=== PATIENT | female | born 2000 | race Caucasian/White ===

== ENCOUNTER 2022-01-27 23:49 | Emergency (ER) | payer BC, SELFPAY ==
--- OUTSIDE RECORDS SUMMARY | 2022-01-27 23:52 | XMS REPORT | Continuity of Care Document ---
:2000 Author Organization [facility] t Address [address] [place] [address] Care Team Providers Name Role Phone PCP, DOES NOT HAVE A Primary Care Physician Unavailable ADUM, L Attending Clinician Unavailable YOLANDA, ZAY Attending Clinician Unavailable Zay Guerrero MD Attending Clinician Tariq DARBY Attending Clinician Pob, Lab Main Attending Clinician Unavailable Only, Test Attending Clinician Unavailable Room, Nst Attending Clinician Unavailable Doctor Unassigned, Name Attending Clinician Unavailable ZAY GUERRERO Admitting Clinician Unavailable Zay Guerrero MD Admitting Clinician Payers Payer Name Policy Type Policy Number Effective Date Expiration Date Jovany COTO [id number] 2016 HEALTH 00:00:00 Problems Condition Condition Condition Status Onset Resolution Last Treating Co mments Source Name Details Category Date Date Treatment Clinician Date High risk High risk Disease Active 2020-07 Uni vers , , 2-23 [place] [address] [place] [address] Branch Liveborn Liveborn Disease Active 2019-07 Unive rs infant, of infant, of 2-03 it y of lópez lópez 00:00: [place] , , 00 Me dical born in born in [facility] by vaginal by vaginal delivery delivery 40 weeks 40 weeks Disease Active 2019-07 Unive rs gestation gestation 2-02 ity of of of 00:00: [place] 00 [facility] Anemia of Anemia of Disease Active 2019-07 Uni vers mother in mother in 08-06 [place]y of , , [place] antepartum antepartum 00 Me dical [place] Uterine Uterine Disease Active 2019-07 Univers size-date size-date 07-30 [place]y of discrepanc discrepanc [place] y in third y in third 00 Me dical trimester trimester Bran ch Allergies, Adverse Reactions, Alerts Allergy Allergy Status Severity Reaction(s) Onset Inactive Treating Comm ents Source Name Type Date Date Clinician NO KNOWN Drug Active Univers ALLERGIE Class ity of S [facility] Social History Social Habit Start Date Stop Date Quantity Comments Source ASSERTION 2021-02-19 [facility] 00:00:00 [facility] Alcohol intake 2021-11-14 2021-11-14 Ex-drinker [facility] 00:00:00 00:00:00 (finding) [facility] Exposure to 2021-11-03 2021-11-13 Not sure [facility] SARS-CoV-2 00:00:00 10:16:00 [facility] (event) [place] Tobacco use and 2020-03-16 2020-03-16 Never used Universit y of exposure 00:00:00 00:00:00 [facility] Sex Assigned At 2000 2000 Universit y of 00:00:00 00:00:00 [facility] Smoking Status Start Date Stop Date Source Never smoker [facility] Medications Ordered Filled Start Stop Current Ordering Indication Dosage Frequency Signature Comments Components Source Medication Medication Date Date Medication? Clinician (SIG) Name Name Yes 1{tbl} 1 tablet, Un cary vitamin 5-11 Oral, ity of w/FA tablet 14:00: [place]ILY[place] 1 tablet 00 First dose Medic al on Sat [place] 11/15/21 at 0900, Until Discontinu ed, Routine Yes [id number] 1{tbl} Take 1 Univers vitamin 5-11 tablet by ity of w/FA tablet 00:00: mouth 00 daily. [facility] Branch docusate Yes [id number] 200mg Take 2 U nivers 100 mg 5-11 capsules ity of capsule 00:00: by mouth 00 once daily Medical as needed Branch for Constipati on. ferrous Yes [id number] 325mg Take 1 Un cary sulfate 325 5-11 tablet by ity of mg (65 mg 00:00: mouth 2 [place] iron) 00 (two) Medical tablet times Branch daily. ibuprofen 2021-0 Yes [id number] 600mg Take 1 Univers 600 mg 5-11 tablet by ity of tablet 00:00: mouth [place] 00 every 6 Medical (six) Branch hours as needed (Pain). Take with food or milk. HYDROcodone 2021-0 Yes 1{tbl} 1 tablet, Univers -acetaminop 5-10 Oral, ity of hen (NORCO 16:13: Q6HPRN, [place] 5) 5-325 mg 03 Starting Medi luna tablet 1 on tablet 11/14/21 at 1113, Until Discontinu ed, Routine, Pain (scale 7-10) ibuprofen 2021- Yes 600mg 600 mg, Univ ers (IBU) 5-10 Oral, ity of tablet 600 16:13: Q6HPRN, [place] mg 03 Starting Medical on Branch 11/14/21 at 1113, Until Discontinu ed, Routine, Pain (scale 4-6) acetaminoph 2021-0 Yes 650mg 650 mg, Un cary en 5-10 Oral, ity of (TYLENOL) 16:13: Q6HPRN, [place] tablet 650 03 Starting Medic al mg on 11/14/21 at 1113, Until Discontinu ed, Routine, Pain (scale 1-3) diphenhydrA 2021-0 Yes 25mg 25 mg, Univ ers MINE 5-10 Oral, ity of (BENADRYL) 16:13: Q6HPRN, [place] tablet 25 03 Starting Medica l mg on Branch 11/14/21 at 1113, Until Discontinu ed, Routine, Sleep, Itching ondansetron 2021-0 Yes 4mg 4 mg, Slow Univers (ZOFRAN 5-10 IV Push, ity of (PF)) 16:13: Q8HPRN, [place] injection 4 03 Starting Medi luna mg on Branch 11/14/21 at 1113, Until Discontinu ed, Routine, Nausea and Vomiting (N/V) simethicone 2021-0 Yes 160mg 160 mg, Un cary (GAS RELIEF 5-10 Oral, ity of (SIMETHICON 16:13: PC+HSPRN, [place] E)) 03 Starting Medical chewable on Sat tablet 160 11/14/21 at mg 1113, Until Discontinu ed, Routine, Gas docusate Yes 200mg 200 mg, Unive rs (COLACE) 5-10 Oral, ity of capsule 200 16:13: QDAILYPRN, [place] mg 03 Starting Medical on Sat Branch 11/14/21 at 1113, Until Discontinu ed, Routine, Constipati on magnesium Yes 30mL 30 mL, Univer s hydroxide 5-10 Oral, ity of (MILK OF 16:13: QDAILYPRN, [place] MAGNESIA) 03 Starting Medica l 400 mg/5 mL on Sat suspension 11/14/21 at 30 mL 1113, Until Discontinu ed, Routine, Constipati on oxytocin Yes 600mL/h 600 mL/hr, Univers (PITOCIN) 5-10 IV ity of 30 units in 16:13: Infusion, [place] NS 500 mL 03 PRN, For Medica l IV infusion post Branch delivery uterine atony., Starting on Sat11/14/21 at 1113<br&gt ;Start at 600 mL/hr for 1 hr then 150 mL/hr for 1 hr.
benzocaine- Yes Topical, Un cary menthol 5-10 PRN, ity of (DERMOPLAST 16:13: Starting [place] ) 20-0.5 % 03 on Sat Medical topical 11/14/21 at Branch spray 1113, Until Discontinu ed, Routine, Perineum discomfort lidocaine-e 2021- No Intravenou Univers pinephrine 5- 05-10 s, ONCE ity o f (XYLOCAINE 13:19: 16:34 INTRA [place] W/EPINEPHRI 00 :03 PROCEDURE, Me dical NE) 2 Starting Branch %-1:200,000 on Sat injection 11/14/21 at 0819, Until Sat11/14/21 at 1134, Routine, Intra-op benzocaine- 2021- No Topical, U nivers menthol 5-10 05-10 PRN, ity of (DERMOPLAST 13:11: 16:51 Starting [place] ) 20-0.5 % 57 :35 on Sat Medical topical 11/14/21 at Branch spray 0811, Until 11/14/21 at 1151, Routine, Localized pain witch Arnold 0 Yes Topical, Un cary (TUCKS) 50 5-10 PRN, ity of % topical 13:00: [place] pad 00 on Sat Medical 11/14/21 at Branch 0800, Until Discontinu ed, Routine, after delivery fentaNYL-ro 2021- No Epidural, Univers pivacaine 2 - 05-10 CONTINUOUS i ty of mcg/mL-0.1 12:41: 16:34 PRN, [place] % (PF) in 00 :03 Starting Medica l NS 200 mL on Sat Branch epidural 11/14/21 at infusion 0741, RTU Until Sat11/14/21 at 1134, Routine, Intra-op lidocaine-e 2021- No Intraderma Univers pinephrine - 05-10 l, ONCE ity o f (XYLOCAINE 12:31: 16:34 INTRA [place] W/EPINEPHRI 00 :03 PROCEDURE, Al dical NE) 1.5 Starting Branch %-1:200,000 on Tue injection 11/14/21 at 0731, Until e 11/14/21 at 1134, Routine, Intra-op D5W-LR IV 2021- No 1000mL at 125 Uni vers infusion 5-10 05-10 mL/hr, IV ity o f 1,000 mL 05:30: 16:51 Infusion, [place] 00 :35 CONTINUOUS Medical , Starting Branch on Sat11/14/21 at 0030, Until Sat11/14/21 at 1151, Routine lactated 2021- No 500mL at 999 Unive rs ringers IV 5-10 05-10 mL/hr, 500 it y of infusion 05:30: 11:41 mL, IV [place] 500 mL 00 :00 Infusion, Medical ONCE, 1 Branch dose, On Sat11/14/21 at 0030, Routine oxytocin Yes 1mU/min at 1-40 Uni vers (PITOCIN) 5-10 mL/hr, IV ity o f 30 units in 05:15: Infusion, [place] NS 500 mL 47 TITRATE, Medica l IV infusion Starting Bran ch on Sat11/14/21 at 0015, Until Discontinu ed, SALIMA sodium 2021- No 30mL 30 mL, Univers citrate-cit 11-14 Oral, ity of january acid 05:15: 11:53 PRE-PROCED [place] (BICITRA) 47 :00 URE ONCE, Medic al 500-334 1 dose, Branch mg/5 mL Starting solution 30 on Sat mL 11/14/21 at 0015, Until Sat11/14/21 at 0653, Routine, Surgery/Pr ocedure fluconazole Yes [id number] 200mg Take 1 Univers (DIFLUCAN) 4-17 tablet by ity of 200 mg 00:00: mouth [place] tablet 00 daily. Medical Branch fluconazole Yes [id number] 200mg Take 1 Univers (DIFLUCAN) 4-17 tablet by ity of 200 mg 00:00: mouth [place] tablet 00 daily. Medical Branch fluconazole 2021- No [id number] 200mg Take 1 Univers (DIFLUCAN) 4-17 05-09 tablet by ity of 200 mg 00:00: 00:00 mouth [place] tablet 00 :00 daily. Medical Branch ferrous Yes [id number] 325mg Take 1 Un cary sulfate 1-20 tablet by ity of (IRON, 00:00: mouth 2 [place] FERROUS 00 (two) Medical SULFATE,) times Branch 325 mg (65 daily. mg iron) tablet ferrous Yes [id number] 325mg Take 1 Un cary sulfate 1-20 tablet by ity of (IRON, 00:00: mouth 2 [place] FERROUS 00 (two) Medical SULFATE,) times Branch 325 mg (65 daily. mg iron) tablet ferrous Yes [id number] 325mg Take 1 Un cary sulfate 1-20 tablet by ity of (IRON, 00:00: mouth 2 [place] FERROUS 00 (two) Medical SULFATE,) times Branch 325 mg (65 daily. mg iron) tablet ferrous Yes [id number] 325mg Take 1 Un cary sulfate 1-20 tablet by ity of (IRON, 00:00: mouth 2 [place] FERROUS 00 (two) Medical SULFATE,) times Branch 325 mg (65 daily. mg iron) tablet ferrous Yes [id number] 325mg Take 1 Un cary sulfate 1-20 tablet by ity of (IRON, 00:00: mouth 2 [place] FERROUS 00 (two) Medical SULFATE,) times Branch 325 mg (65 daily. mg iron) tablet ferrous Yes [id number] 325mg Take 1 Un cary sulfate 1-20 tablet by ity of (IRON, 00:00: mouth 2 [place] FERROUS 00 (two) Medical SULFATE,) times Branch 325 mg (65 daily. mg iron) tablet ferrous Yes [id number] 325mg Take 1 Un cary sulfate 1-20 tablet by ity of (IRON, 00:00: mouth 2 [place] FERROUS 00 (two) Medical SULFATE,) times Branch 325 mg (65 daily. mg iron) tablet ferrous 2021- No [id number] 325mg Take 1 U nivers sulfate 1-20 05-11 tablet by ity of (IRON, 00:00: 00:00 mouth 2 [place] FERROUS 00 :00 (two) Medical SULFATE,) times Branch 325 mg (65 daily. mg iron) tablet PNV 2020-07 Yes [id number] Take 1 Univers 102-iron-fo 2-23 TAB-CAP/M2 it y of late-dha 00:00: by mouth [place] (VITAFOL FE 00 daily. Medica l PLUS) 90 mg Branch iron- 1 mg-200 mg Cap PNV 2020-07 Yes [id number] Take 1 Univers 102-iron-fo 2-23 TAB-CAP/M2 it y of late-dha 00:00: by mouth [place] (VITAFOL FE 00 daily. Medica l PLUS) 90 mg Branch iron- 1 mg-200 mg Cap PNV 2020-07 Yes [id number] Take 1 Univers 102-iron-fo 2-23 TAB-CAP/M2 it y of late-dha 00:00: by mouth [place] (VITAFOL FE 00 daily. Medica l PLUS) 90 mg Branch iron- 1 mg-200 mg Cap PNV 2020-07 Yes [id number] Take 1 Univers 102-iron-fo 2-23 TAB-CAP/M2 it y of late-dha 00:00: by mouth [place] (VITAFOL FE 00 daily. Medica l PLUS) 90 mg Branch iron- 1 mg-200 mg Cap PNV 2020-07 Yes [id number] Take 1 Univers 102-iron-fo 2-23 TAB-CAP/M2 it y of late-[facility] 00:00: by mouth [place] (VITAFOL FE 00 daily. Medica l PLUS) 90 mg Branch iron- 1 mg-200 mg Cap PNV 2020-07 Yes [id number] Take 1 Univers 102-iron-fo 2-23 TAB-CAP/M2 it y of late-[facility] 00:00: by mouth [place] (VITAFOL FE 00 daily. Medica l PLUS) 90 mg Branch iron- 1 mg-200 mg Cap PNV 2020-07 Yes [id number] Take 1 Univers 102-iron-fo 2-23 TAB-CAP/M2 it [facility] 00:00: by mouth [place] (VITAFOL FE 00 daily. Medica l PLUS) 90 mg Branch iron- 1 mg-200 mg Cap PNV 2020-07- No [id number] Take 1 Univer s 102-iron-fo 2-23 05-11 TAB-CAP/M2 i ty of formerly [facility] 00:00: 00:00 by mouth Armida godinez (VITAFOL FE 00 :00 daily. Medica l PLUS) 90 mg Branch iron- 1 mg-200 mg Cap Immunizations Ordered Filled Immunization Date Status Comments [facility] e Immunization Name Name [facility] 2021-09-13 Completed University of 00:00:00 [facility] 2021-09-13 Completed University of 00:00:00 [facility] 2021-09-13 Completed University of 00:00:00 [facility] 2021-09-13 Completed University of 00:00:00 [facility] 2021-09-13 Completed [facility] Com[facility] University of 00:00:00 [facility] Influenza Virus 2021 Completed Universit y of Vaccine Quad IM, 00:00:00 [place] Me dical Preserv and ABX Branch Free 6 MO-64 YRS Influenza Virus 2021 Completed Universit y of Vaccine [place] IM, 00:00:00 [place] Me dical Preserv and ABX Branch Free 6 MO-64 YRS Influenza Virus 2021 Completed Universit y of Vaccine Quad IM, 00:00:00 [place] Me dical Preserv and ABX Branch Free 6 MO-64 YRS Influenza Virus 2021 Completed Universit y of Vaccine Quad IM, 00:00:00 [place] Me dical Preserv and ABX Branch Free 6 MO-64 YRS Influenza Virus 2021 Completed Universit y of Vaccine Quad IM, 00:00:00 [place] Me dical Preserv and ABX Branch Free 6 MO-64 YRS Influenza Virus 2021 Completed Universit y of Vaccine Quad IM, 00:00:00 [place] Me dical Preserv and ABX Branch Free 6 MO-64 YRS Influenza Virus 2021 Completed Universit y of Vaccine Quad IM, 00:00:00 [place] Me dical Preserv and ABX Branch Free 6 MO-64 YRS Influenza Virus 2021 Completed Universit y of Vaccine Quad IM, 00:00:00 [place] Me dical Preserv and ABX Branch Free 6 MO-64 YRS TDAP 2020-04-20 Completed University of 00:00:00 [facility] Influenza Virus 2020-04-20 Completed Universit y of Vaccine [place] .5 mL 00:00:00 [place] Medical IM 6+ MO Branch TDAP 2020-04-20 Completed University of 00:00:00 [place] [facility] [place] Influenza Virus 2020-04-20 Completed Universit y of Vaccine [place] .5 mL 00:00:00 [place] Medical IM 6+ MO Branch TDAP 2020-04-20 Completed University of 00:00:00 [facility] Influenza Virus 2020-04-20 Completed Universit y of Vaccine [place] .5 mL 00:00:00 [place] Medical IM 6+ MO Branch TDAP 2020-04-20 Completed University of 00:00:00 [facility] Influenza Virus 2020-04-20 Completed Universit y of Vaccine [place] .5 mL 00:00:00 [place] Medical IM 6+ MO Branch TDAP 2020-04-20 Completed University of 00:00:00 [facility] Influenza Virus 2020-04-20 Completed Universit y of Vaccine [place] .5 mL 00:00:00 [place] Medical IM 6+ MO Branch TDAP 2020-04-20 Completed University of 00:00:00 [facility] Influenza Virus 2020-04-20 Completed Universit y of Vaccine [place] .5 mL 00:00:00 [place] Medical IM 6+ MO Branch TDAP 2020-04-20 Completed University of 00:00:00 [facility] Influenza Virus 2020-04-20 Completed Universit y of Vaccine [place] .5 mL 00:00:00 [facility] IM 6+ MO Branch TDAP 2020-04-20 Completed University of 00:00:00 [facility] Influenza Virus 2020-04-20 Completed Universit y of Vaccine [place] .5 mL 00:00:00 [facility] IM 6+ MO Branch Vital Signs Vital Name Observation Time Observation Value Comments Source Systolic blood 2021-11-15 12:30:00 109 mm[Hg] Univer sity of pressure [facility] Diastolic blood 2021-11-15 12:30:00 60 mm[Hg] Unive rsity of [facility] Heart rate 2021-11-15 12:30:00 60 /min [facility] Body temperature 2021-11-15 12:30:00 36.67 [facility]ovanna [facility] Respiratory rate 2021-11-15 12:30:00 16 /min [facility] Oxygen saturation in 2021-11-15 12:30:00 100 /min [facility] Arterial blood by [facility] Pulse oximetry [place] Body height 2021-11-14 05:29:00 160 cm 5" 3" [facility] Body weight 2021-11-14 05:29:00 56.7 kg 125lb [facility] BMI 2021-11-14 05:29:00 22.14 kg/m2 [facility] Systolic blood 2021-11-13 15:37:00 111 mm[Hg] Univer sity of [facility] Diastolic blood 2021-11-13 15:37:00 74 mm[Hg] Unive rsity of [facility] Heart rate 2021-11-13 15:37:00 108 /min Universi ty [facility] Body temperature 2021-11-13 15:37:00 36.56 Jovanna [facility] ersity [facility] Respiratory rate 2021-11-13 15:37:00 8 /min [facility] Body height 2021-11-13 15:37:00 160 cm Universi [facility] Body weight 2021-11-13 15:37:00 56.972 kg [facility] ty [facility] BMI 2021-11-13 15:37:00 22.25 kg/m2 Universi ty of [facility] Systolic blood 2021-11-09 15:39:00 110 mm[Hg] Univer sity of pressure [facility] Diastolic blood 2021-11-09 15:39:00 76 mm[Hg] Unive rsity of [facility] Heart rate 2021-11-09 15:39:00 71 /min Universi ty [facility] Body temperature 2021-11-09 15:39:00 36.56 Jovanna Univ ersity of [facility] Body height 2021-11-09 15:39:00 160 cm Universi ty of [facility] Body weight 2021-11-09 15:39:00 54.522 kg Universi ty [facility] BMI 2021-11-09 15:39:00 21.29 kg/m2 Universi ty [facility] Systolic blood 2021-11-02 13:15:00 108 mm[Hg] Univer sity of [facility] Diastolic blood 2021-11-02 13:15:00 76 mm[Hg] Unive rsity of [facility] Heart rate 2021-11-02 13:15:00 104 /min Universi ty [facility] Body temperature 2021-11-02 13:15:00 36.89 Jovanna [facility] Respiratory rate 2021-11-02 13:15:00 18 /min [facility] Body height 2021-11-02 13:15:00 160 cm Universi ty [facility] Body weight 2021-11-02 13:15:00 56.246 kg Universi ty [facility] BMI 2021-11-02 13:15:00 21.97 kg/m2 [facility] Procedures Procedure Date / Time Performed Performing Clinician Sourc e CBC WITH DIFF 2021-11-15 09:14:00 Katt Guerrero Nekoma o f [facility] CENTRAL NEURAXIAL 2021-11-14 12:45:52 [facility]q [facility] ASSIGNMENT OF BENEFITS 2021-11-13 16:32:50 Doctor Unassigned, No [facility] NON-STRESS TEST 2021-11-13 16:14:58 [facility] W/O 2021-11-09 00:00:00 Katt Guerrero [facility] POCT URINALYSIS W/O 2021-11-02 00:00:00 Katt Guerrero [facility] Encounters Start End Encounter Admission Attending Care Care Encounter Source Date/Time Date/Time Type Type Clinicians Facility Department ID 2021-12-15 2021-12-15 Outpatient R MOR [facility] [id number] Univers 15:45:00 15:45:00 [place] [id number] [facility] 2021-12-15 2021-12-15 Outpatient R MOR [facility] [id number] Univers 15:45:00 15:45:00 CITLALLI [facility] 2021-12-13 2021-12-13 Outpatient R KATT GUERRERO [facility] [id number] Univers 11:00:00 11:00:00 [id number] ity [facility] 2021-12-11 2021-12-11 Outpatient R KATT GUERRERO [facility] [id number] Univers 08:45:00 08:45:00 [id number] [facility] 2021-12-11 2021-12-11 Outpatient R KATT GUERRERO [facility] [id number] Univers 08:45:00 08:45:00 ity [facility] 2021-11-14 2021-11-15 Inpatient P KATT GUERRERO [facility] MICHELINE [id number] Univers 00:01:00 11:05:00 ity [facility] 2021-11-14 2021-11-15 [facility] Katt Guerrero [facility] [id number] Univers 00:01:00 11:05:00 Encounter Zya [place] [id number] [facility] 4.2.7.2.686 [facility] [id number] [place] [id number] Branch 2021-11-14 2021-11-14 Anesthesia [facility] [id number] Univers 07:15:00 11:34:00 Event NOAM rahman [id number] i ty of [facility] 4.2.7.2.686 [place] CAMPUS [id number] [facility] 083 [place] 2021-11-13 2021-11-13 Guest Services Assistant Jose C, [facility] Lab Main [place] 1.2.8 [id number] Univers 11:45:00 12:00:00 Visit Katt Guerrero [id number] ity of [place] 4.2.7.2.686 [place] PROF[place] [id number] Al dical NAL 353 [facility] 2021-11-13 2021-11-13 Outpatient R [facility] [id number] Univers 11:45:00 11:45:00 [id number] ity of [facility] 2021-11-13 2021-11-13 Laboratory Only, [facility] Test [facility] 1.2.840. [id number] Univers 11:30:00 11:45:00 Only Katt Guerrero [id number] ity of [place] 4.2.7.2.686 [place] C[place] [id number] [facility] 353 [place] 2021-11-13 2021-11-13 Outpatient R KATT GUERRERO [facility] [id number] Univers 11:30:00 11:30:00 ity of [facility] 2021-11-13 2021-11-13 Routine Room, [facility] [id number] Univers 10:00:00 11:12:19 Katt Guerrero [id number] ity of Visit [place] 4[place]2.[place] [id number] Al dical NAL 134 [facility] 2021-11-13 2021-11-13 Orders Doctor LAUREN [id number] Univers 00:00:00 00:00:00 Only Unassigned, ANGELA [id number] ity of [place] [facility] 4.2.7.2.686 [place] [id number] [facility] 009 [place] 2021-11-09 2021-11-09 Outpatient R KATT GUERRERO [facility] [id number] Univers 10:30:00 10:58:24 ity [facility] 2021-11-09 2021-11-09 Routine Katt Guerrero [facility] [id number] Univers 10:30:00 10:58:24 Cam [place] [id number] ity of Visit [place]2.[place] [id number] [address] 2021-11-09 2021-11-09 Outpatient R KATT GUERRERO [facility] [id number] Univers 10:30:00 10:30:00 [id number] ity [facility] 2021-11-02 2021-11-02 Routine Katt Guerrero [facility] [id number] Univers 08:00:00 08:15:00 Cam [place] [id number] ity of Visit [place] 4.2.7.2.686 [place] [id number] [address] Results Test Description Test Time Test Comments Results Result Comments Source CBC with Differential 2021-11-15 10:22:27 Test Item Value Reference Range Interpretation Comme nts WBC (test code = 6690-2) See_Comment [A utomated message] The system which ge nerated this result transmit anish reference range: 4.30 - 1 1.10 10*3/?L. The reference r carmen was not used to interpr et this result as normal/abnor mal. RBC (test code = 789-8) See_Comment [Au tomated message] The system which ge nerated this result transmit anish reference range: 3.93 - 5 .25 10*6/?L. The reference r carmen was not used to interpr et this result as normal/abnor mal. HGB (test code = 718-7) 8.8 g/dL 11.6-15.0 L HCT (test code = 4544-3) 29.0 % 35.7-45.2 L MCV (test code = 787-2) 73.8 fL 80.6-95.5 L MCH (test code = 785-6) 22.4 pg 25.9-32.8 L MCHC (test code = 786-4) 30.3 g/dL 31.6-35.1 L RDW-SD (test code = 91716-5) 45.4 fL 39.0-49.9 RDW-CV (test code = 788-0) 16.9 % 12.0-15.5 H PLT (test code = 777-3) See_Comment [Au tomated message] The system which ge nerated this result transmit anish reference range: 166 - 35 8 10*3/?L. The reference range was not used to interpret th is result as normal/abnormal . MPV (test code = 28423-5) 10.1 fL 9.5-12.9 NRBC/100 WBC (test code = See_Comment [ Automated message] The [id number]) system which ge nerated this result transmit anish reference range: 0.0 - 10 .0 /100 WBCs. The reference r carmen was not used to interpr et this result as normal/abnor mal. NRBC x10^3 (test code = <0.01 See_Comment [Au tomated message] The [id number]) system which ge nerated this result transmit anish reference range: 10*3/?L. The reference range was not u sed to interpret this result as normal/abnormal . GRAN MAT (NEUT) % (test code 66.3 % = 770-8) IMM GRAN % (test code = 0.50 % [id number]) LYMPH % (test code = 736-9) 28.0 % MONO % (test code = 5905-5) 4.7 % EOS % (test code = 713-8) 0.2 % BASO % (test code = 706-2) 0.3 % GRAN MAT x10^3(ANC) (test 5.86 10*3/uL 1.88-7.09 code = [id number]) IMM GRAN x10^3 (test code = 0.04 10*3/uL 0.00-0.06 [id number]) LYMPH x10^3 (test code = 2.48 10*3/uL 1.32-3.29 731-0) MONO x10^3 (test code = 0.42 10*3/uL 0.33-0.92 742-7) EOS x10^3 (test code = <0.03 0.03-0.39 L 711-2) BASO x10^3 (test code = 0.03 10*3/uL 0.01-0.07 704-7) Lab Interpretation (test Abnormal code = 92681-4) [facility] SPECIFIC [id number] 15:38:00 Test Item Value Reference Range Interpretation Comments POCT PH U (test code = 3254) n/a 5-8 POCT U LEUK EST (test code = n/a Negative - Negative 3263) POCT U NIT (test code = 3262) n/a Negative - Negative POCT U PROT (test code = 3259) Negative Negative - Negative POCT U GLU (test code = 3256) normal Negative - Negative POCT U KETONE (test code = 3258) n/a Negative - Negative POCT U BLD (test code = 3257) n/a Negative - Negative [facility]/O SPECIFIC [id number] 13:22:00 Test Item Value Reference Range Interpretation Comments POCT PH U (test code = 3254) n/a 5-8 POCT U LEUK EST (test code = n/a Negative - Negative 3263) POCT U NIT (test code = 3262) n/a Negative - Negative POCT U PROT (test code = 3259) negative Negative - Negative POCT U GLU (test code = 3256) negative Negative - Negative POCT U KETONE (test code = 3258) n/a Negative - Negative POCT U BLD (test code = 3257) n/a Negative - Negative [facility]
[2022-01-28 02:54] LABS: Urine Blood 3+ (Negative); Urine Glucose Negative (Negative); Urine Protein 3+ (Negative)
[2022-01-28 03:11] LABS: Urine Blood 2+ (Negative); Urine Glucose Negative (Negative); Urine Protein 3+ (Negative); Urine pH 6.5 (5.0-7.0)
[2022-01-28 03:39] LABS: Urine Bacteria Loaded /HPF (<20); Urine Mucus 1+ /HPF (None Seen); Urine WBC Clump Moderate /HPF (None Seen)
--- NOTE | 2022-01-28 03:47 | ER ---
Nurse's Notes [facility] Name: Sindi Brian Age: 21 yrs Sex: Female : 2000 Arrival Date: 01/27/2022 Time: 23:51 Bed 6 Private MD: Diagnosis: Pyelonephritis acute;Low back pain Presentation: 01/28 00:00 Chief complaint: Patient states: THIS MORNING START HAVING PAIN IN BILATERAL FLANK [facility] THAT HAS MOVED TO HER STOMACH. Coronavirus screen: Vaccine status: Patient reports being unvaccinated. At this time, the client does not indicate any symptoms associated with coronavirus-19. Ebola Screen: Patient negative for fever greater than or equal to 101.5 degrees Fahrenheit, and additional compatible Ebola Virus Disease symptoms. Initial Sepsis Screen: Does the patient meet any 2 criteria? No. Patient's initial sepsis screen is negative. Does the patient have a suspected source of infection? No. Patient's initial sepsis screen is negative. Risk Assessment: Do you want to hurt yourself or someone else? Patient reports no desire to harm self or others. Onset of symptoms was January 28, 2022. 00:00 Method Of Arrival: Ambulatory [facility] 00:00 Acuity: CHIP 3 [facility] Triage Assessment: 00:05 General: Appears in no apparent distress. Behavior is calm, cooperative, appropriate [facility] for age. Pain: Complains of pain in left mid back and right mid back. Musculoskeletal: Circulation, motion, and sensation intact. Historical: - Allergies: 00:05 NKDA; [facility] - Home Meds: 00:05 None [Active]; [facility] - PMHx: 00:05 None; [facility] - PSHx: 00:05 None; [facility] - Immunization history:: Adult Immunizations up to date. - Social history:: Smoking status: Patient denies any tobacco usage or history of. Screenin:24 Abuse screen: Denies threats or abuse. Nutritional screening: No deficits noted. kl Tuberculosis screening: No symptoms or risk factors identified. Fall Risk None identified. Assessment: 01:23 General: Appears in no apparent distress. comfortable, well groomed, well developed, kl Behavior is calm, cooperative, appropriate for age. Pain: Complains of pain in back and right mid back and left mid back. Neuro: No deficits noted. Level of Consciousness is awake, alert, obeys commands, Oriented to person, place, time, situation. Cardiovascular: No deficits noted. Respiratory: No deficits noted. GI: No deficits noted. : No deficits noted. EENT: No deficits noted. No signs and/or symptoms were reported regarding the EENT system. Derm: No deficits noted. No signs and/or symptoms reported regarding the dermatologic system. Musculoskeletal: Reports pain in back and right mid back and left mid back. Vital Signs: 00:00 BP 132 / 97; Pulse 77; Resp 20; Temp 98.4; Pulse Ox 100% on R/A; Weight 45.36 kg; bh1 Height 5 ft. 4 in. (162.56 cm); Pain 10/10; 02:00 BP 126 / 81; Pulse 77; Resp 18 S; Pulse Ox 99% on R/A; as6 04:06 BP 130 / 85; Pulse 79; Resp 18 S; Pulse Ox 100% on R/A; as6 00:00 Body Mass Index 17.16 (45.36 kg, 162.56 cm) [facility] ED Course: 01/27 23:51 Patient arrived in ED. bp1 23:54 Frankie Justice DO is Attending Physician. ms3 07 00:05 Triage completed. bh1 00:05 Arm band placed on right wrist. bh1 00:28 Hector Collins, [place] is Primary Nurse. as6 03:46 Juan Ramirez DO is Referral Physician. ms3 04:07 Bed in low position. Call light in reach. as6 04:07 No provider procedures requiring assistance completed. Patient did not have IV access as6 during this emergency room visit. Administered Medications: 03:54 CANCELLED (Physician Discretion): Rocephin (cefTRIAXone) 1 grams IV at calculated rate ms3 once; Given slow IV push per pharmacy instructions 04:06 Drug: Rocephin (cefTRIAXone) 1 grams Route: IM; Site: right vastus lateralis; as6 04:08 Follow up: Response: No adverse reaction as6 Medication: 04:08 VIS not applicable for this client. as6 Outcome: 03:47 Discharge ordered by . ms3 04:07 Discharged to home ambulatory. as6 04:07 Condition: stable 04:07 Discharge instructions given to patient, Instructed on discharge instructions, follow up and referral plans. medication usage, Demonstrated understanding of instructions, follow-up care, medications, Prescriptions given X 1. 04:08 Patient left the ED. as6 Signatures: Aydee Restrepo, RN RN Frankie Vicente DO DO ms3 Jazz Arceo Ashby, RN RN as6 Emilie Grady RN RN bh1
--- NOTE | 2022-01-28 03:47 | EDPHYS ---
Physician Documentation [facility] Name: Sindi Brian Age: 21 yrs Sex: Female : 2000 Arrival Date: 01/27/2022 Time: 23:51 Bed 6 Private MD: ED Physician Frankie Justice HPI: 01/28 00:35 This 21 yrs old Female presents to ER via Ambulatory with complaints of Back Pain. ms3 00:35 21-year-old female with no past medical history presents for bilateral flank pain for 1 ms3 day. Patient states pain is 10/10 described as throbbing. Patient denies alleviating or inciting factors. Patient states she has not taken medications for her pain. Patient endorses urinary frequency and dysuria. Patient denies fevers or chills.. Historical: - Allergies: 00:05 NKDA; bh1 - Home Meds: 00:05 None [Active]; bh1 - PMHx: 00:05 None; bh1 - PSHx: 00:05 None; bh1 - Immunization history:: Adult Immunizations up to date. - Social history:: Smoking status: Patient denies any tobacco usage or history of. ROS: 00:35 Constitutional: Negative for fever, and chills. ENT: Negative for injury, pain, and ms3 discharge, Neck: Negative for injury, pain, and swelling, Cardiovascular: Negative for chest pain, and palpitations. Respiratory: Negative for shortness of breath, cough, wheezing, and pleuritic chest pain, Abdomen/GI: Negative for abdominal pain, nausea, vomiting, diarrhea, and constipation. 00:35 Skin: Negative for injury, rash, and discoloration, Psych: Negative for depression, anxiety, suicide ideation, homicidal ideation, and hallucinations. 00:35 Back: Positive for flank pain, bilaterally. 00:35 All other systems are negative. Exam: 00:35 Constitutional: This is a well developed, well nourished patient who is awake, alert, ms3 and in no acute distress. Head/Face: Normocephalic, atraumatic. Eyes: Pupils equal round and reactive to light, extra-ocular motions intact. Lids and lashes normal. Conjunctiva and sclera are non-icteric and not injected. Periorbital areas with no swelling, redness, or edema. Neck: Trachea midline, no cervical lymphadenopathy. Supple, full range of motion without nuchal rigidity, or vertebral point tenderness. No Meningismus. Chest/axilla: Normal chest wall appearance and motion. Nontender with no deformity. Cardiovascular: Regular rate and rhythm with a normal S1 and S2. No gallops, murmurs, or rubs. Normal PMI, no JVD. No pulse deficits. Respiratory: Lungs have equal breath sounds bilaterally, clear to auscultation and percussion. No rales, rhonchi or wheezes noted. No increased work of breathing, no retractions or nasal flaring. Abdomen/GI: Soft, non-tender, with normal bowel sounds. No distension or tympany. No guarding or rebound. No evidence of tenderness throughout. Neuro: Awake and alert, GCS 15, oriented to person, place, time, and situation. Cranial nerves II-XII grossly intact. Motor strength 5/5 in all extremities. Sensory grossly intact. Cerebellar exam normal. Normal gait. 00:35 : CVA tenderness, noted bilaterally. Vital Signs: 00:00 BP 132 / 97; Pulse 77; Resp 20; Temp 98.4; Pulse Ox 100% on R/A; Weight 45.36 kg; 1 Height 5 ft. 4 in. (162.56 cm); Pain 10/10; 02:00 BP 126 / 81; Pulse 77; Resp 18 S; Pulse Ox 99% on R/A; as6 04:06 BP 130 / 85; Pulse 79; Resp 18 S; Pulse Ox 100% on R/A; as6 00:00 Body Mass Index 17.16 (45.36 kg, 162.56 cm) [facility] MDM: 00:22 Patient medically screened. ms3 00:35 Differential diagnosis: Pyelonephritis muscle spasm. ms3 03:47 Data reviewed: vital signs, nurses notes, lab test result(s), and as a result, I will ms3 discharge patient. Data interpreted: Pulse oximetry: on room air is 100 %. Interpretation: normal. Counseling: I had a detailed discussion with the patient and/or guardian regarding: the historical points, exam findings, and any diagnostic results supporting the discharge/admit diagnosis, lab results, the need for outpatient follow up, to return to the emergency department if symptoms worsen or persist or if there are any questions or concerns that arise at home. ED course: On re-evaluation patient is A/O x4, nad, non-toxic, ambulatory in ED, speaking full sentences.. 01/28 00:25 Order name: Urine Microscopic Only; Complete Time: 03:42 ms3 01/28 02:54 Order name: Urine Dipstick-Ancillary; Complete Time: 03:42 EDMS 01/28 02:54 Order name: Urine --Ancillary (enter results); Complete Time: 03:42 ds4 01/28 03:11 Order name: Urine Dipstick-Ancillary; Complete Time: 03:42 EDMS 01/28 03:42 Order name: Urine Culture EDMS 01/28 00:25 Order name: Urine Dipstick-Ancillary (obtain specimen); Complete Time: 02:54 ms3 Administered Medications: 03:54 CANCELLED (Physician Discretion): Rocephin (cefTRIAXone) 1 grams IV at calculated rate ms3 once; Given slow IV push per pharmacy instructions 04:06 Drug: Rocephin (cefTRIAXone) 1 grams Route: IM; Site: right vastus lateralis; as6 04:08 Follow up: Response: No adverse reaction as6 Disposition Summary: 01/28/22 03:47 Discharge Ordered Location: Home ms3 Condition: Stable ms3 Diagnosis - Pyelonephritis acute ms3 - Low back pain ms3 Followup: ms3 - With: Juan Ramirez DO - When: 2 - 3 days - Reason: Recheck today's complaints Discharge Instructions: - Discharge Summary Sheet ms3 - Pyelonephritis, Adult ms3 Forms: - Medication Reconciliation Form ms3 - Thank You Letter ms3 - Antibiotic Education ms3 - Prescription Opioid Use ms3 Prescriptions: - Cephalexin 500 mg Oral Capsule - take 1 capsule by ORAL route every 6 hours for 10 days; 40 capsule; Refills: 0, ms3 Product Selection Permitted Signatures: Dispatcher [employer] EDAZ Frankie Justice DO DO ms3 Hector Collins RN RN as6 Emilie Grady RN RN bh1 Corrections: (The following items were deleted from the chart) 03:54 03:50 Rocephin (cefTRIAXone) 1 grams IV at calculated rate once; Given slow IV push per ms3 pharmacy instructions ordered. ms3
[2022-01-28] MEDS ORDERED: LIDOCAINE 1% MPF 2 ML AMPULE ONE (04:06)
[2022-01-28] MEDS ORDERED: CEFTRIAXONE 1000 MG/VIAL ONE (04:06)
[2022-01-28 04:16] VITALS: TEMP 98.4
[2022-01-28 04:20] VITALS: BP 130/85; O2SAT 100
== END 2022-01-28 04:08 | disposition home or self-care (01) ==
LOC: ER 23:49
DX: N10 Acute pyelonephritis (principal)
CPT/HCPCS: 81003; 81015; 81025; 87077; 87086; 87088; 87186; 96372; 99283

== ENCOUNTER 2023-03-25 18:38 | Emergency (ER) | payer OTHER, SELFPAY ==
--- OUTSIDE RECORDS SUMMARY | 2023-03-25 18:46 | XMS REPORT | Continuity of Care Document ---
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 16:32:50 Doctor Unassigned, No [facility] NON-STRESS TEST 2021-11-13 16:14:58 Katt Guerrero [facility] POCT URINALYSIS W/O 2021-11-09 00:00:00 Katt Guerrero [facility] POCT URINALYSIS W/O 2021-11-02 00:00:00 Katt Guerrero [facility] Encounters Start End Encounter Admission Attending Care Care Encounter Source Date/Time Date/Time Type Type Clinicians Facility Department ID 2022-05-01 Outpatient [facility] [id number] [place] 11:31:47 [id number] [facility] 2022-03-29 Outpatient [facility] [id number] [place] 09:19:51 [id number] [facility] 2022-03-28 Outpatient [facility] [id number] [place] 11:56:40 [id number] [facility] 2022-03-26 Outpatient [facility] [id number] [place] 11:28:58 [id number] [facility] 2022-03-13 Outpatient [facility] [id number] [place] 10:41:02 [id number] [facility] 2021-05-06 Outpatient P [facility] MICHELINE [id number] Univers 08:38:19 [facility] 2022-05-02 2022-05-02 Outpatient [facility] [id number] [place] 13:30:00 13:30:00 Health 2022-04-19 2022-04-19 Outpatient [facility] [id number] [place] 14:15:00 14:15:00 Health 2022-04-11 2022-04-11 Outpatient EPIFANIO [facility] [id number] [place] 14:00:00 14:00:00 QUIN [facility] 2022-04-11 2022-04-11 Outpatient [facility] [id number] [place] 14:00:00 14:00:00 Health 2022-04-03 2022-04-03 Outpatient JEFFREY CID [facility] [id number] [place] 13:15:00 13:15:00 [facility] 2022-03-28 2022-03-28 Office ARLETTE Monge 6414 1.2.840.114 [id number] [place] 12:30:00 13:21:15 Visit Quin MUNROE 350.1.13.58 [facility] 9.2.7.2.686 [id number] 2022-03-28 2022-03-28 Outpatient [facility] [id number] [place] 12:30:00 13:15:58 Health 2022-03-13 2022-03-16 Inpatient [facility] [id number] Memoria 00:06:15 23:30:[address] [place] [address] 2022-03-13 2022-03-16 Inpatient E SARAH [id number] 11:12:00 18:30:00 JF 2022-03-12 2022-03-16 Outpatient Sarah [facility] [id number] 19:06:15 18:30:00 Jf Carrasco 67 2022-03-12 2022-03-16 Outpatient Sarah [facility] [id number] 19:06:15 18:30:00 Jf Carrasco 67 2022-03-12 2022-03-12 Outpatient EFRAÍN [id number] 20:05:00 23:59:00 TIAN 2021-12-15 2021-12-15 Outpatient Savi JUARES [facility] [id number] Univers 15:45:00 15:45:00 CITLALLI ity of [facility] 2021-12-11 2021-12-11 Outpatient R KATT GUERRERO [facility] [id number] Univers 08:45:00 08:45:00 ity of [facility] 2021-11-14 2021-11-15 Inpatient P KATT GUERRERO [facility] MICHELINE [id number] Univers 00:01:00 11:05:00 ity of [facility] 2021-11-14 2021-11-15 Hospital Katt Guerrero [facility] 1.2.840.114 [id number] Univers 00:01:00 11:05:00 Encounter Jagdish SANTACRUZ 350.1.13.10 ity of [place] [id number] [place] [address] [place] 2021-11-14 2021-11-14 Anesthesia Alquicira-M [facility] 1.2.840.114 [id number] Univers 07:15:00 11:34:00 Event NOAM rahman 350.1.13.10 i ty of [place] [facility] 4.2.7.2.686 [place] as CAMPUS [phone] [place] [address] Branch 2021-11-13 2021-11-13 Record Clerk Salesperson Jose C, Gianna Lab Main [place] 1.2.8 40.114 [id number] Univers 11:45:00 12:00:00 Visit Katt Guerrero NOAM 350.1.13.10 ity of [facility] [place] [id number] [facility] [address] [facility] 2021-11-13 2021-11-13 Laboratory Only, Adc Test [facility] 1.2.840. 114 [id number] Univers 11:30:00 11:45:00 Only Katt Guerrero NOAM 350.1.13.10 ity of [facility] [place].2.7.2.[place] [id number] [place] [address] [place] 2021-11-13 2021-11-13 Outpatient R KATT GUERRERO [facility] [id number] Univers 11:30:00 11:30:00 ity of [facility] 2021-11-132021-11-13 Routine Room, [facility] 1.2.840.1 14 [id number] Univers 10:00:00 11:12:19 Katt GuerreroTON 350.1.13.10 ity of [place] [id number] [address] 2021-11-13 2021-11-13 Orders Doctor LAUREN 1.2.840.114 [id number] Univers 00:00:00 00:00:00 Only Unassigned, ANGELA 350.1.13.10 ity of [place] [facility] 4.2.7.2.686 [place] as [phone] [address] 2021-11-09 2021-11-09 Outpatient R KATT GUERRERO [facility] [id number] Univers 10:30:00 10:58:24 ity [facility] 2021-11-09 2021-11-09 Routine Katt Guerrero [facility] 1.2.790.689 [id number] Univers 10:30:00 10:58:24 Cam [place] 350.1.13.10 ity of [place] [phone] Ar dic[address] 2021-11-02 2021-11-02 Routine Katt Guerrero [facility] 1.2.545.983 [id number] Univers 08:00:00 08:15:00 Cam [place] 350.1.13.10 ity of Visit [place] [id number] Ar dic[address] 2021-11-02 2021-11-02 Outpatient R KATT GUERRERO [facility] [id number] Univers 08:00:00 08:00:00 ity [facility] 2021-10-26 2021-10-26 Emergency X SINGER SCPILO ERT [id number] Univers 09:11:00 12:09:00 SETH ity [facility] 2021-10-26 2021-10-26 Emergency Singer [facility] 1.2.859.170 [id number] Univers 09:11:00 12:09:00 Seth SANTACRUZ 350.1.13.10 i ty of [facility] [place].7.[place] [id number] [address] 2021-10-26 2021-10-26 Telephone Katt Guerrero [facility] 1.2.840.114 [id number] Univers 00:00:00 00:00:00 Cam [place] 350.1.13.10 i ty of [facility] 4.[place] [phone] Ar dical NAL [address] [place] [address] 2021-10-25 2021-10-25 Outpatient R YOLANDA KATT [facility] [id number] Univers 09:45:00 09:45:00 ity [facility] 2021-10-24 2021-10-24 Record Clerk Salesperson Ultrasound, [facility] 1.2 .840.114 [id number] Univers 14:00:00 14:30:00 Visit Elvis Stout 350.1 .13.10 ity of [facility] [place].2.7.[place] [phone] Ar dical NAL [address] [place] [address] 2021-10-24 2021-10-24 Outpatient P RADHA [facility] [id number] Univers 14:00:00 14:00:00 AMMON it y of [place] Godinez [facility] 2021-10-22 2021-10-22 Case Katt Guerrero [facility] 1.2.226.281 [id number] Univers 00:00:00 00:00:00 Management Cam [place] 350.1.13.10 ity of [facility] [place] [phone] Ar dical NAL [address] [place] [address] 2021-10-19 2021-10-19 Outpatient R YOLANDA KATT [facility] [id number] Univers 16:00:00 17:04:43 ity [facility] 2021-10-19 2021-10-19 Routine Yolanda Katt [facility] 1.2.078.864 [id number] Univers 16:00:00 17:04:43 Cam NOAM 350.1.13.10 ity of [place] [phone] Ar dical NAL 134 [facility] 2021-10-19 2021-10-19 Telephone Katt Guerrero [facility] 1.2.840.114 [id number] Univers 00:00:00 00:00:00 Cam NOAM 350.1.13.10 i ty of [place] [phone] Ar dical [facility] 134 [facility] 2021-10-17 2021-10-17 Record Clerk Salesperson Jose C, Adc Lab Main [facility] 1.2.8 40.114 [id number] Univers 17:15:00 17:30:00 Visit Katt Guerrero Jagdish SANTACRUZ 350.1.13.10 ity of [facility] [place] [phone] [facility] 353 [facility] 2021-10-17 2021-10-17 Outpatient R KATT GUERRERO [facility] [id number] Univers 15:30:00 16:25:52 ity of [facility] 2021-10-17 2021-10-17 Routine Katt Guerrero [facility] 1.2.907.197 [id number] Univers 15:30:00 16:25:52 Jagdish SANTACRUZ 350.1.13.10 ity of [place] [phone] [address] 2021-10-17 2021-10-17 Orders Doctor LAUREN 1.2.840.114 [id number] Univers 00:00:00 00:00:00 Only Unassigned, ANGELA 350.1.13.10 ity of [place] [facility] 4.2.7.2.686 Timbo as [phone] [address] 2021-10-11 2021-10-11 Outpatient Savi MOYA [facility] [id number] Univers 16:15:00 16:15:00 RICARDA bowman [facility] 2021-10-10 2021-10-10 Outpatient Savi MOYA [facility] [id number] Univers 15:45:00 16:36:08 RICARDA ity [facility] 2021-10-10 2021-10-10 Routine Nita [facility] 1.2.494.660 [id number] Univers 15:45:00 16:36:08 Ricarda [place] 350.1.13.10 ity of [place] [phone] Ar dical NAL [address] [place] [address] 2021-10-06 2021-10-06 Outpatient R LY, [facility] [id number] Univers 17:20:00 17:20:00 ATTENDING ity [facility] 2021-10-06 2021-10-06 Telephone Katt Guerrero [facility] 1..840.114 [id number] Univers 00:00:00 00:00:00 Cam NOAM 350.1.13.10 i ty of [place] [phone] Ar dical NAL [address] [place] [address] 2021-09-27 2021-09-27 Outpatient R KATT GUERRERO [facility] [id number] Univers 16:00:00 16:43:05 ity [facility] 2021-09-27 2021-09-27 Routine Katt Guerrero [facility] 1.2.854.631 [id number] Univers 16:00:00 16:43:05 Jagdish [place] 350.1.13.10 ity of [place] [phone] Ar dical NAL 134 [facility] 2021-09-15 2021-09-15 Record Clerk Salesperson 2, Adc Lab [facility] 1.2.840.114 [id number] Univers 10:00:00 10:15:00 Visit Katt Guerrero 350.1.13.10 ity of [place] [phone] Ar dicdylon FARMER 353 [facility] 2021-09-15 2021-09-15 Outpatient R KATT GUERRERO [facility] [id number] Univers 10:00:00 10:00:00 ity of [facility] 2021-09-15 2021-09-15 Outpatient R KATT GUERRERO [facility] [id number] Univers 08:30:00 08:30:00 ity [facility] 2021-09-14 2021-09-14 Outpatient R [facility] [id number] Univers 08:30:00 08:30:00 ity [facility] 2021-09-13 2021-09-13 Routine Nita [facility] 1.2.277.919 [id number] Univers 16:00:00 16:15:00 Riacrdaradha SANTACRU[place] 350.1.13.10 ity of [facility] 4.2.7.2.686 Armida FONSECA [phone] [address] 2021-09-13 2021-09-13 Outpatient R NITA [facility] [id number] Univers 16:00:00 16:00:00 [facility] 2021-09-04 2021-09-04 [facility] [id number] Univers 14:15:00 14:15:00 [facility] 2021-09-01 2021-09-01 Outpatient R KATT GUERRERO [facility] [id number] Univers 10:00:00 10:00:00 ity [facility] 2021-08-25 2021-08-25 Out[facility] [id number] Univers 08:15:00 08:15:00 ity [facility] 2021-08-24 2021-08-24 Outpatient R KATT GUERRERO [facility] [id number] Univers 13:45:00 13:45:00 ity [facility] 2021-08-10 2021-08-10 Outpatient R [facility] [id number] Univers 10:30:00 10:30:00 ity [facility] 2021-08-03 2021-08-03 Record Clerk Salesperson [facility] 1.2 .840.114 [id number] Univers 11:00:00 12:00:00 Visit Allyssa Alva TRAFFIC CONTROL TECHNICIAN 350.1. 13.10 ity of [place] [id number] Timbo as MATERNAL [phone] Med ical & CHILD [address] [place] [address] 2021-08-03 2021-08-03 Outpatient P NIDA [facility] [id number] Univers 11:00:00 11:00:00 CHASEY ity of [facility] 2021-07-27 2021-07-27 Routine [facility] 1.2.212.046 [id number] Univers 15:45:00 16:42:31 Cam NOAM 350.1.13.10 ity of Visit [place] [phone] Ar dical [address] 2021-07-27 2021-07-27 Outpatient R YOLANDA KATT [facility] [id number] Univers 08:30:00 08:30:00 ity of [facility] 2021-07-06 2021-07-06 Nurse Nurse, [facility] 1.2.840.114 [id number] Univers 10:30:00 10:45:00 Visit Katt Guerrero Jagdish [facility] 350.1.13.10 ity of [place].2.[place] [phone] Ar dic[address] 2021-07-06 2021-07-06 Outpatient R DALE GUERREROEN [facility] [id number] Univers 10:30:00 10:30:00 ity of [facility] 2021-07-05 2021-07-05 Telephone Yolanda [facility] 1.2.840.114 [id number] Univers 00:00:00 00:00:00 Cam NOAM 350.1.13.10 i ty of [place] [phone] Ar dical [address] 2021-07-02 2021-07-02 Case Nita [facility] 1.2.364.092 [id number] Univers 00:00:00 00:00:00 Management [facility] 350.1.13.10 ity of [place] 4.2.7.2.686 Timbo as ZA?BLEA [phone] Ar marisa [facility] [address] [place] MEDICAL OFFICE [facility] 2021 2021 Initial Katt Guerrero [facility] 1.2.777.121 [id number] Univers 16:15:00 16:15:00 Cam [place] 350.1.13.10 ity of [place] [phone] [facility] 134 [facility] 2021 2021 Record Clerk Salesperson 2, Adc Lab [facility] 1.2.840.114 [id number] Univers 16:00:00 16:15:00 Visit Yolanda Kattalayna SANTACRUZ 350.1.13.10 ity of [place] [phone] [facility] 353 [facility] 2021 2021 Outpatient R KATT GUERRERO [facility] [id number] Univers 16:15:00 15:50:22 ity of [facility] 2021 2021 Orders Doctor LARUEN 1.2.840.114 [id number] Univers 00:00:00 00:00:00 Only Unassigned, ANGELA 350.1.13.10 ity of [place] [facility] 4.2.7.2.686 Timbo as [phone] [address] 2020-08-17 2020-08-17 Outpatient R KATT GUERRERO [facility] [id number] Univers 08:30:00 08:30:00 ity of [facility] 2020-07-21 2020-07-21 Routine Katt Guerrero [facility] 1.2.141.935 [id number] Univers 10:53:34 11:33:29 Cam [place] 350.1.13.10 ity of [place].2.[place] [phone] [facility] 134 [facility] 2020-07-21 2020-07-21 Outpatient R KATT GUERRERO [facility] [id number] Univers 11:15:00 11:15:00 ity of [facility] 2020-06-14 2020-06-14 Outpatient R KATT GUERRERO [facility] [id number] Univers 15:45:00 15:45:00 ity of [facility] 2020-06-14 2020-06-14 Telephone Katt Guerrero [facility] 1.2.840.114 [id number] Univers 00:00:00 00:00:00 Cam [place] 350.1.13.10 i ty of [place]2.7.2.[place] [phone] [address] 2020-06-08 2020-06-09 Hospital Katt Guerrero [facility] 1..840.114 [id number] Univers 04:37:00 16:00:00 Encounter Cam [place] 350.1.13.10 ity of [place] 4[place]2.7.2.[place] [phone] [address] 2020-06-08 2020-06-08 Outpatient P [facility] [id number] Univers 15:15:00 15:15:00 ity of [facility] 2020-06-06 2020-06-06 Routine Dale [facility] 1..095.856 [id number] Univers 08:19:43 09:27:27 Cam [place] 350.1.13.10 ity of [place].2.[place] [id number] [address] 2020-06-06 2020-06-06 Outpatient R KATT GUERRERO [facility] [id number] Univers 08:30:00 08:30:00 ity of [facility] 2020-06-01 2020-06-01 Telephone Dale [facility] 1..840.114 [id number] Univers 00:00:00 00:00:00 Cam [place] 350.1.13.10 i ty of [place]2.[place] [phone] [address] 2020-05-31 2020-05-31 Case Miguellorenzo [facility] 1.2.132.385 [id number] Univers 00:00:00 00:00:00 Management Ricarda [place] 350.1.13.10 ity of [place].2.[place] [phone] Ar dical nal 134 [facility] 2020-05-30 2020-05-30 Record Clerk Salesperson 2, Adc Lab [facility] 1.2.840.114 [id number] Univers 09:51:20 10:06:20 Visit Katt Guerrero Jagdish Santac[place] 350.1.13.10 ity of [place] 4[place]2.7.2.[place] [phone] Ar dical nal 353 [facility] 2020-05-30 2020-05-30 Routine Yolanda [facility] 1.2.309.016 [id number] Univers 08:26:12 09:31:48 Jagdish Santac[place] 350.1.13.10 ity of [place].2.[place] [phone] Ar dical nal 134 [facility] 2020-05-30 2020-05-30 Outpatient R GUERRERO KATT [facility] [id number] Univers 08:30:00 08:30:00 ity of [facility] 2020-05-30 2020-05-30 Orders Doctor LAUREN 1.2.840.114 [id number] Univers 00:00:00 00:00:00 Only Unassigned, ANGELA 350.1.13.10 ity of [place] [facility] 4.2.7.2.686 Timbo as [phone] [address] 2020-04-29 2020-04-29 Record Clerk Salesperson Ultrasound, [facility] 1.2 .840.114 [id number] Univers 13:58:03 15:00:16 Visit Elvis [place] 350.1 .13.10 ity of [place] [phone] Ar dical nal 134 [facility] 2020-04-29 2020-04-29 Outpatient P [facility] [id number] Univers 14:00:00 14:00:00 ity of [facility] 2020-04-25 2020-04-25 Telephone [facility] 1.2.840.114 [id number] Univers 00:00:00 00:00:00 Jagdish [place] 350.1.13.10 i ty of [place].2.[place] [phone] Ar dical [address] 2020-04-25 2020-04-25 Case Katt Guerrero [facility] 1.2.681.573 [id number] Univers 00:00:00 00:00:00 Management Cam [place] 350.1.13.10 ity of [place]2.[place] [phone] Ar dic[address] 2020-04-20 2020-04-20 Routine Dale [facility] 1.2.691.172 [id number] Univers 09:35:59 09:50:59 Cam [place] 350.1.13.10 ity of [place].7.2.[place] [phone] Ar dic[address] 2020-04-20 2020-04-20 Outpatient R YOLANDA [facility] [id number] Univers 09:30:00 09:30:00 ity of [facility] 2020-04-20 2020-04-20 Letter Doctor LAUREN 1.2.840.114 [id number] Univers 00:00:00 00:00:00 (Out) Unassigned, ANGELA 350.1.13.10 ity of [place] [facility] 4.2.7.2.686 Tim[place] as [phone] [address] 2020-03-16 2020-03-16 Initial Dale [facility] 1.2.404.122 [id number] Univers 13:51:31 14:21:31 [place] 350.1.13.10 ity of [place] 4[place]7.2.[place] [phone] Ar [address] 2020-03-16 2020-03-16 Outpatient R YOLANDA [facility] [id number] [employer] 14:00:00 14:00:00 ity [facility] 2020-03-16 2020-03-16 Orders Doctor LAUREN [id number] [employer] 00:00:00 00:00:00 Only Unassigned, ANGELA [id number] ity of [facility] 4.2.7.2.686 [place] as [phone] [facility] luna 009 Branch Results Test Description Test Time Test Comments Results Result Comments Source CHEM PANEL 2022-03-16 10:12:00 Test Item Value Reference Range Interpretation Comme nts Glucose Lvl (test code = Glucose Lvl) 77 70-99 [facility]2022-09-09 10:12:00 Test Item Value Reference Range Interpretation Comments BUN (test code = BUN) 15 7-22 [facility]2022-09-09 10:12:00 Test Item Value Reference Range Interpretation Comments Creatinine Lvl (test code = Creatinine 0.48 0.50-1.40 Lvl) [facility]2022-09-09 10:12:00 Test Item Value Reference Range Interpretation Comments Sodium Lvl (test code = Sodium Lvl) 140 135-145 [facility]2022-09-09 10:12:00 Test Item Value Reference Range Interpretation Comments Potassium Lvl (test code = Potassium 3.8 3.5-5.1 Lvl) [facility]2022-09-09 10:12:00 Test Item Value Reference Range Interpretation Comments Chloride Lvl (test code = Chloride Lvl) 106 95-109 [facility]2022-09-09 10:12:00 Test Item Value Reference Range Interpretation Comments CO2 (test code = CO2) 28 24-32 [facility]2022-09-09 10:12:00 Test Item Value Reference Range Interpretation Comments Calcium Lvl (test code = Calcium Lvl) 8.8 8.5-10.5 [facility]2022-09-09 10:12:00 Test Item Value Reference Range Interpretation Comments AGAP (test code = AGAP) 9.8 10.0-20.0 [facility]2022-09-09 10:12:00 Test Item Value Reference Range Interpretation Comments eGFR (test code = eGFR) 138 [facility] 10:12:00 Test Item Value Reference Range Interpretation Comments WBC (test code = WBC) 5.7 3.7-10.4 [facility]48 10:12:00 Test Item Value Reference Range Interpretation Comments RBC (test code = RBC) 3.87 4.20-5.40 [place] 365222-09-09 10:12:00 Test Item Value Reference Range Interpretation Comments Hgb (test code = Hgb) 9.7 12.0-16.0 [place] 365222-09-09 10:12:00 Test Item Value Reference Range Interpretation Comments Hct (test code = Hct) 29.8 36.0-48.0 [place] 365222-09-09 10:12:00 Test Item Value Reference Range Interpretation Comments MCV (test code = MCV) 77.0 80.0-98.0 [place] 365222-09-09 10:12:00 Test Item Value Reference Range Interpretation Comments MCH (test code = MCH) 24.9 pg 27.0-31.0 [place] 365222-09-09 10:12:00 Test Item Value Reference Range Interpretation Comments MCHC (test code = MCHC) 32.4 32.0-36.0 [facility]AyhhettFHYVDOUWTY6660-76-08 10:12:00 Test Item Value Reference Range Interpretation Comments RDW (test code = RDW) 14.0 11.5-14.5 [place] 365222-09-09 10:12:00 Test Item Value Reference Range Interpretation Comments Platelet (test code = Platelet) 314 133-450 [facility] CenterImqibitZRUCZSPGVQ6563-23-03 10:12:00 Test Item Value Reference Range Interpretation Comments MPV (test code = MPV) 7.6 7.4-10.4 [place] 365222-09-09 10:12:00 Test Item Value Reference Range Interpretation Comments Segs (test code = Segs) 53.3 45.0-75.0 [facility] CenterIwbaslaRSUDFJRKFO3865-23-77 10:12:00 Test Item Value Reference Range Interpretation Comments Lymphocytes (test code = Lymphocytes) 39.1 20.0-40.0 [place] 365222-09-09 10:12:00 Test Item Value Reference Range Interpretation Comments Monocytes (test code = Monocytes) 5.2 2.0-12.0 [place] [address]-09-09 10:12:00 Test Item Value Reference Range Interpretation Comments Eosinophils (test code = 1.9 See_Comment [A utomated message] The Eosinophils) system which ge nerated this result tra nsmitted reference range : <=4.0. The reference r carmen was not used to int erpret this result as normal/abnormal . [facility] CenterLrnbohsRCMSVRIDTV0275-52-99 10:12:00 Test Item Value Reference Range Interpretation Comments Basophils (test code = 0.5 See_Comment [Aut omated message] The Basophils) system which ge nerated this result tra nsmitted reference range : <=1.0. The reference r carmen was not used to int erpret this result as normal/abnormal . [place] 365222-09-09 10:12:00 Test Item Value Reference Range Interpretation Comments Neutrophils # (test code = Neutrophils 3.0 1.5-8.1 #) [facility] CenterMsdonqdLQNWSBUFJF2732-73-93 10:12:00 Test Item Value Reference Range Interpretation Comments Lymphocytes # (test code = Lymphocytes 2.2 1.0-5.5 #) [facility] CenterVmvqrusJOPEOSWBRX7760-08-71 10:12:00 Test Item Value Reference Range Interpretation Comments Monocytes # (test code 0.3 See_Comment [Aut omated message] The = Monocytes #) system which generated this result tra nsmitted reference range : <=0.8. The reference r carmen was not used to int erpret this result as normal/abnormal . [facility] CenterFrtwvlhOYUHVUCRDK8122-90-76 10:12:00 Test Item Value Reference Range Interpretation Comments Eosinophils # (test code 0.1 See_Comment [A utomated message] The = Eosinophils #) system whic h generated this result tra nsmitted reference range : <=0.5. The reference r carmen was not used to int erpret this result as normal/abnormal . [facility] CenterGtnzszhHORSMGTKJG6509-00-16 10:12:00 Test Item Value Reference Range Interpretation Comments Microcyte (test code = 1+ *ABN*(03/16/22 5:12 Microcyte) AM) [place] 576462-09-07 13:24:00 Test Item Value Reference Range Interpretation Comments Glucose Lvl (test code = Glucose Lvl) 86 70-99 [place] 576462-09-07 13:24:00 Test Item Value Reference Range Interpretation Comments BUN (test code = BUN) 10 7- [place] 576462-09-07 13:24:00 Test Item Value Reference Range Interpretation Comments Creatinine Lvl (test code = Creatinine 0.60 0.50-1.40 Lvl) [place] 576462-09-07 13:24:00 Test Item Value Reference Range Interpretation Comments Sodium Lvl (test code = Sodium Lvl) 141 135-145 [place] 576462-09-07 13:24:00 Test Item Value Reference Range Interpretation Comments Potassium Lvl (test code = Potassium 3.6 3.5-5.1 Lvl) [place] 576462-09-07 13:24:00 Test Item Value Reference Range Interpretation Comments Chloride Lvl (test code = Chloride Lvl) 107 95-109 [place] 576462-09-07 13:24:00 Test Item Value Reference Range Interpretation Comments CO2 (test code = CO2) 29 24-32 [place] 576462-09-07 13:24:00 Test Item Value Reference Range Interpretation Comments Calcium Lvl (test code = Calcium Lvl) 9.2 8.5-10.5 [place] 576462-09-07 13:24:00 Test Item Value Reference Range Interpretation Comments AGAP (test code = AGAP) 8.6 10.0-20.0 [place] 576462-09-07 13:24:00 Test Item Value Reference Range Interpretation Comments eGFR (test code = eGFR) 131 [place] 365222-09-07 13:24:00 Test Item Value Reference Range Interpretation Comments WBC (test code = WBC) 5.6 3.7-10.4 [place] 365222-09-07 13:24:00 Test Item Value Reference Range Interpretation Comments RBC (test code = RBC) 4.22 4.20-5.40 [place] 365222-09-07 13:24:00 Test Item Value Reference Range Interpretation Comments Hgb (test code = Hgb) 10.6 12.0-16.0 [place] [address]-09-07 13:24:00 Test Item Value Reference Range Interpretation Comments Hct (test code = Hct) 32.6 36.0-48.0 [place] [address]-09-07 13:24:00 Test Item Value Reference Range Interpretation Comments MCV (test code = MCV) 77.4 80.0-98.0 [place] [address]-09-07 13:24:00 Test Item Value Reference Range Interpretation Comments MCH (test code = MCH) 25.1 pg 27.0-31.0 [facility] CenterSfnoankXHMFGNVPVY2275-16-50 13:24:00 Test Item Value Reference Range Interpretation Comments MCHC (test code = MCHC) 32.4 32.0-36.0 [facility] CenterPmczhmaPQFVNVLQKU9730-92-88 13:24:00 Test Item Value Reference Range Interpretation Comments RDW (test code = RDW) 14.4 11.5-14.5 [facility] CenterFxmhfkmHFPTMNRUCP6189-16-23 13:24:00 Test Item Value Reference Range Interpretation Comments Platelet (test code = Platelet) 307 133-450 [facility] CenterYeywdedVCNJOZQYUZ1551-10-01 13:24:00 Test Item Value Reference Range Interpretation Comments MPV (test code = MPV) 7.7 7.4-10.4 [place] [address]222-09-07 13:24:00 Test Item Value Reference Range Interpretation Comments Segs (test code = Segs) 63.4 45.0-75.0 [facility] CenterUbbuzsvCYBIYERAKM9796-48-29 13:24:00 Test Item Value Reference Range Interpretation Comments Lymphocytes (test code = Lymphocytes) 27.2 20.0-40.0 [facility] CenterKwupafoJJQQNDGDCS3477-49-46 13:24:00 Test Item Value Reference Range Interpretation Comments Monocytes (test code = Monocytes) 8.0 2.0-12.0 [place] [address]222-09-07 13:24:00 Test Item Value Reference Range Interpretation Comments Eosinophils (test code = 1.1 See_Comment [A utomated message] The Eosinophils) system which ge nerated this result tra nsmitted reference range : <=4.0. The reference r carmen was not used to int erpret this result as normal/abnormal . [facility] CenterGgvjjyoXDBRKTUXDX0216-32-00 13:24:00 Test Item Value Reference Range Interpretation Comments Basophils (test code = 0.3 See_Comment [Aut omated message] The Basophils) system which ge nerated this result tra nsmitted reference range : <=1.0. The reference r carmen was not used to int erpret this result as normal/abnormal . [facility] CenterIwvjqzyFOGXBKBCAX8220-15-41 13:24:00 Test Item Value Reference Range Interpretation Comments Neutrophils #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
--- NOTE | 2023-03-25 20:09 | RAD REPORT ---
EXAM DESCRIPTION: RAD - Elbow Right 3 View - 03/25/2023 8:00 pm CLINICAL HISTORY: Pain;Smash injury COMPARISON: No comparisons TECHNIQUE: Right elbow, 3 views. FINDINGS: No acute fracture is identified. Subtle anterior fat pad elevation. There is no dislocation or periosteal reaction noted. No foreign body or other soft tissue abnormalit y. IMPRESSION: Subtle anterior fat pad elevation, raise concern for an occult supracondylar fracture. C onsider short-term radiographic follow in 7-10 days to evaluate for signs of healing.
--- NOTE | 2023-03-25 20:12 | EDPHYS ---
Physician Documentation [facility] Name: Sindi Brian Age: 22 yrs Sex: Female : 2000 Arrival Date: 03/25/2023 Time: 18:38 Bed 12 Private MD: ED Physician Ness Pa HPI: 03/25 19:22 This 22 yrs old Female presents to ER via Ambulatory with complaints of Elbow Pain. snw 19:22 The patient or guardian complains of decreased range of motion, injury, pain, that is snw acute. 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 - Social history:: Smoking status: Reported history of juuling and/or vaping. ROS: 19:21 Constitutional: Negative for fever, chills, and weight loss, Eyes: Negative for injury, snw pain, redness, and discharge, ENT: Negative for injury, pain, and discharge, Neck: Negative for injury, pain, and swelling, Cardiovascular: Negative for chest pain, palpitations, and edema, Respiratory: Negative for shortness of breath, cough, wheezing, and pleuritic chest pain, Abdomen/GI: Negative for abdominal pain, nausea, vomiting, diarrhea, and constipation, Back: Negative for injury and pain, : Negative for injury, bleeding, discharge, and swelling, Skin: Negative for injury, rash, and discoloration, Neuro: Negative for headache, weakness, numbness, tingling, and seizure, Psych: Negative for depression, anxiety, suicide ideation, homicidal ideation, and hallucinations, 19:21 MS/extremity: Positive for injury or acute deformity, decreased range of motion, pain, tenderness, of the right elbow, Exam: 19:20 Constitutional: This is a well developed, well nourished patient who is awake, alert, snw and in no acute distress. Head/Face: Normocephalic, atraumatic. Eyes: Pupils equal round and reactive to light, extra-ocular motions intact. Lids and lashes normal. Conjunctiva and sclera are non-icteric and not injected. Cornea within normal limits. Periorbital areas with no swelling, redness, or edema. ENT: Nares patent. No nasal discharge, no septal abnormalities noted. Tympanic membranes are normal and external auditory canals are clear. Oropharynx with no redness, swelling, or masses, exudates, or evidence of obstruction, uvula midline. Mucous membranes moist. Neck: Trachea midline, no thyromegaly or masses palpated, and no cervical lymphadenopathy. Supple, full range of motion without nuchal rigidity, or vertebral point tenderness. No Meningismus. Chest/axilla: Normal chest wall appearance and motion. Nontender with no deformity. No lesions are appreciated. Cardiovascular: Regular rate and rhythm with a normal S1 and S2. No gallops, murmurs, or rubs. Normal PMI, no JVD. No pulse deficits. Respiratory: Lungs have equal breath sounds bilaterally, clear to auscultation and percussion. No rales, rhonchi or wheezes noted. No increased work of breathing, no retractions or nasal flaring. Abdomen/GI: Soft, non-tender, with normal bowel sounds. No distension or tympany. No guarding or rebound. No evidence of tenderness throughout. Back: No spinal tenderness. No costovertebral tenderness. Full range of motion. Skin: Warm, dry with normal turgor. Normal color with no rashes, no lesions, and no evidence of cellulitis. Neuro: Awake and alert, GCS 15, oriented to person, place, time, and situation. Cranial nerves II-XII grossly intact. Motor strength 5/5 in all extremities. Sensory grossly intact. Cerebellar exam normal. Normal gait. Psych: Awake, alert, with orientation to person, place and time. Behavior, mood, and affect are within normal limits. 19:20 Musculoskeletal/extremity: Extremities: grossly normal except: noted in the right elbow: decreased ROM, swelling, tenderness, ROM: limited active range of motion due to pain, limited passive range of motion due to pain, in the right elbow, Circulation is intact in all extremities. Sensation intact. Vital Signs: 19:19 BP 124 / 83; Pulse 93; Resp 16; Temp 98.4(TE); Pulse Ox 100% ; Weight 54.43 kg; Height me1 5 ft. 4 in. ; 22:17 BP 118 / 79; Pulse 65; Resp 18; Pulse Ox 100% ; as6 19:19 Body Mass Index 20.60 (54.43 kg, 162.56 cm) me1 MDM: 18:49 Patient medically screened. snw 19:25 Differential diagnosis: dislocation, closed fracture, tendonitis. Data reviewed: vital snw signs, nurses notes, radiologic studies. Counseling: I had a detailed discussion with the patient and/or guardian regarding the historical points, exam findings, and any diagnostic results supporting the discharge/admit diagnosis, radiology results, the need for outpatient follow up, for definitive care, to return to the emergency department if symptoms worsen or persist or if there are any questions or concerns that arise at home. Special discussion: Based on the history and exam findings, there is no indication for further emergent testing or inpatient evaluation. 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 I discussed with the patient/guardian the need to see the primary care provider for further evaluation of the symptoms. 19:57 Transition of care: After a detail discussion of the patient's case, care is snw transferred to Eugenia Best [facility]. 03/25 18:52 Order name: Elbow Right 3 View XRAY; Complete Time: 20:10 snw 03/25 20:11 Order name: Posterior Elbow Splint; Complete Time: 21:46 kb 03/25 20:11 Order name: Sling; Complete Time: 21:46 kb Administered Medications: No medications were administered Disposition: 19:47 Co-signature as Attending Physician, Ness Pa MD I agree with the assessment and cp3 plan of care. Disposition Summary: 03/25/23 20:12 Discharge Ordered Notes: Location: Home kb Condition: Stable kb Diagnosis - Supracondylar fracture - right kb Followup: kb - With: Emergency Department - When: As needed - Reason: Worsening of condition Followup: kb - With: Private Physician - When: 2 - 3 days - Reason: Recheck today's complaints, Continuance of care, Re-evaluation by your physician Discharge Instructions: - Discharge Summary Sheet kb - Elbow Fracture, Pediatric kb - Elbow Contusion, [id number] kb Forms: - Medication Reconciliation Form kb - Thank You Letter kb - Antibiotic Education kb - Prescription Opioid Use kb - Patient Portal Instructions kb - Leadership Thank You Letter kb Prescriptions: - Diclofenac Sodium 75 mg Oral tablet,delayed release (DR/EC) - take 1 tablet by ORAL route 2 times per day As needed; 30 tablet; Refills: 0, kb Product Selection Permitted Signatures: Dispatcher [employer] EDEugenia Yeboah, STEPHANIE BURGER-Ckb Rose Mary Spivey FNP-C FNP-Nolanw Ness Pa MD MD cp3 Fang Her RN RN me1
--- NOTE | 2023-03-25 20:12 | ER ---
Nurse's Notes [facility] Name: Sindi Brian Age: 22 yrs Sex: Female : 2000 Arrival Date: 03/25/2023 Time: 18:38 Bed 12 Private MD: Diagnosis: Supracondylar fracture - right Presentation: 03/25 19:19 Chief complaint: Patient states: s/p fall yesterday with left elbow pain. Coronavirus me1 screen: Vaccine status: Patient reports being unvaccinated. Ebola Screen: No symptoms or risks identified at this time. Initial Sepsis Screen: Does the patient meet any 2 criteria? No. Patient's initial sepsis screen is negative. Does the patient have a suspected source of infection? No. Patient's initial sepsis screen is negative. Risk Assessment: Do you want to hurt yourself or someone else? Patient reports no desire to harm self or others. Onset of symptoms was March 24, 2023. 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 - Social history:: Smoking status: Reported history of juuling and/or vaping. Screenin:16 [facility] ED Fall Risk Assessment (Adult) Score/Fall Risk Level 0 - 2 = Low Risk. Abuse as6 screen: Denies threats or abuse. Denies injuries from another. Nutritional screening: No deficits noted. Tuberculosis screening: No symptoms or risk factors identified. Assessment: 22:15 General: Appears in no apparent distress. Behavior is calm, cooperative. Pain: as6 Complains of pain in right elbow. Musculoskeletal: Range of motion: limited in right elbow Reports pain in right arm and right elbow. Vital Signs: 19:19 BP 124 / 83; Pulse 93; Resp 16; Temp 98.4(TE); Pulse Ox 100% ; Weight 54.43 kg; Height me1 5 ft. 4 in. ; 22:17 BP 118 / 79; Pulse 65; Resp 18; Pulse Ox 100% ; as6 19:19 Body Mass Index 20.60 (54.43 kg, 162.56 cm) me1 ED Course: 18:39 Patient arrived in ED. rg4 18:46 Rose Mary Spivey FNP-C is PHCP. snw 18:46 Ness Pa MD is Attending Physician. snw 19:21 Triage completed. me1 19:21 Arm band placed on Patient placed in waiting room. me1 19:43 PHCP role handed off by Rose Mary Spivey FNP-C kb 19:43 Eugenia Best FNP-C is PHCP. kb 20:02 Elbow Right 3 View XRAY In Process Unspecified. EDMS 22:16 Bed in low position. Call light in reach. Provided Education on: follow up with ortho . as6 22:16 No provider procedures requiring assistance completed. Patient did not have IV access as6 during this emergency room visit. Administered Medications: No medications were administered Medication: 22:16 VIS not applicable for this client. as6 Outcome: 20:12 Discharge ordered by . kb 22:16 Discharged to home ambulatory, with family, as6 22:16 Condition: stable 22:16 Discharge instructions given to patient, Instructed on discharge instructions, follow up and referral plans. medication usage, Demonstrated understanding of instructions, follow-up care, medications, splint care, Prescriptions given X 1, 22:17 Patient left the ED. as6 Signatures: Dispatcher [employer] EDNM Eugenia Best FNP-C FNP-Rose Mary Mosley FNP-C FNP-Briana Meyer rg4 Hector Collins, MINERVA RN as6 Fang Her RN RN me1
[2023-03-25 23:38] VITALS: TEMP 98.4; O2SAT 100
[2023-03-25 23:39] VITALS: BP 118/79
== END 2023-03-25 22:17 | disposition home or self-care (01) ==
LOC: ER 18:38
PROC: 2W3AX1Z Immobilization of Right Upper Arm using Splint (ICD-10-PCS; principal; 2023-03-25)
DX: S42.411A Displaced simple supracondylar fracture without intercondylar fracture of right humerus, initial encounter for closed fracture (principal)

== ENCOUNTER 2023-10-30 11:56 | Emergency (ER) | payer OTHER ==
--- NOTE | 2023-10-30 12:16 | ER ---
Nurse's Notes [facility] Name: Sindi Brian Age: 23 yrs Sex: Female : 2000 Arrival Date: 10/30/2023 Time: 11:56 Bed 1 Private MD: Diagnosis: 35 weeks with contractions Presentation: 10/29 12:07 Chief complaint: Patient states: mild contractions that started last night. pt states as6 she was able to sleep and this morning they have been stronger. 2-3 minutes apart lasting approx 1 minute. Coronavirus screen: At this time, the client does not indicate any symptoms associated with coronavirus-19. Ebola Screen: No symptoms or risks identified at this time. Initial Sepsis Screen: Does the patient meet any 2 criteria? No. Patient's initial sepsis screen is negative. Does the patient have a suspected source of infection? No. Patient's initial sepsis screen is negative. Risk Assessment: Do you want to hurt yourself or someone else? Patient reports no desire to harm self or others. Onset of symptoms was October 29, 2023. 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 - Infectious Disease History:: Denies. - Social history:: Smoking status: Patient denies any tobacco usage or history of. - Family history:: not pertinent. Screenin:16 [facility] ED Fall Risk Assessment (Adult) History of falling in the last 3 months, as6 including since admission No falls in past 3 months (0 pts). Abuse screen: Denies threats or abuse. Denies injuries from another. Nutritional screening: No deficits noted. Tuberculosis screening: No symptoms or risk factors identified. Assessment: 12:15 General: Appears in no apparent distress. uncomfortable, Behavior is calm, cooperative. as6 Pain: Complains of pain in back and abdomen Quality of pain is described as crampy, radiating. Neuro: Level of Consciousness is awake, alert, obeys commands, Oriented to person, place, time, situation. Cardiovascular: Capillary refill < 3 seconds Patient's skin is warm and dry. Respiratory: Respiratory effort is even, unlabored, Respiratory pattern is regular, symmetrical. GI: Reports lower abdominal pain. GI: Abdomen is round distended. : No deficits noted. No signs and/or symptoms were reported regarding the genitourinary system. EENT: No deficits noted. No signs and/or symptoms were reported regarding the EENT system. Derm: Skin is intact, is healthy with good turgor. Musculoskeletal: Circulation, motion, and sensation intact. 14:06 Reassessment: Patient appears in no apparent distress at this time. Patient and/or as6 family updated on plan of care and expected duration. Pain level reassessed. Patient is alert, oriented x 3, equal unlabored respirations, skin warm/dry/pink. Vital Signs: 12:06 BP 120 / 74; Pulse 73; Resp 17 S; Temp 97.9(TE); Pulse Ox 100% on R/A; Weight 52.16 kg as6 (R); Height 5 ft. 3 in. (R); Pain 7/10; 13:00 BP 128 / 83; Pulse 71; Resp 16 S; Pulse Ox 99% on R/A; as6 14:00 BP 119 / 79; Pulse 63; Resp 16 S; Pulse Ox 100% on R/A; as6 12:06 Body Mass Index 20.37 (52.16 kg, 160.02 cm) as6 12:06 Pain Scale: Adult as6 Vitals: 12:48 Heart Tones 125. as6 ED Course: 11:57 Patient arrived in ED. rg4 11:58 Hector Collins, [facility] is Primary Nurse. as6 12:00 Chase Christianson MD is Attending Physician. rt 12:01 Arm band placed on Patient placed in an exam room, on a stretcher. iw 12:14 Triage completed. as6 12:16 Placed in gown. Bed in low position. Call light in reach. as6 12:17 Assist provider with pelvic exam: Set up pelvic tray. Performed by Chase Christianson MD as6 Patient tolerated well. 12:27 initiated transfer to [facility], pt accepted in transfer to [facility] by Dr myah Mcleod. pt going to L\T\D triage. 12:53 Provided Education on: need for transfer . as6 12:53 Inserted saline lock: 20 gauge in right antecubital area, using aseptic technique. as6 Patient transferred, IV remains in place. Administered Medications: No medications were administered Medication: 12:16 VIS not applicable for this client. as6 Outcome: 12:15 ER care complete, transfer ordered by MD. rt 12:53 Transferred by ground EMS to [facility], Transfer form as6 completed. 12:53 Condition: stable 12:53 Instructed on the need for transfer, 14:07 Patient left the ED. as6 Signatures: Emilie Turcios Irene, RN Briana Monte rg4 Hector Collins RN RN as6 Chase Christianson MD MD rt Corrections: (The following items were deleted from the chart) 12:02 12:02 Allergies: NKDA; iw iw 13:34 12:07 Acuity: CHIP 3 as6 as6
--- NOTE | 2023-10-30 12:16 | EDPHYS ---
Physician Documentation [facility] Name: Sindi Brian Age: 23 yrs Sex: Female : 2000 Arrival Date: 10/30/2023 Time: 11:56 Bed 1 Private MD: ED Physician Chase Christianson HPI: 10/29 15:36 This 23 yrs old Female presents to ER via Ambulatory with complaints of 35 Week rt , Contractions. 15:36 Patient is a G3, P2, 35 weeks who presents to the ED with contractions every 2 minutes rt lasting about 1 minute time. Denies any leakage of fluid, rupture of membranes. States that contractions started mildly last night. Continue to become intense and frequent. Denies other acute complaints at this time. States that she gets her obstetrical care at [facility].. 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 - Infectious Disease History:: Denies. - Social history:: Smoking status: Patient denies any tobacco usage or history of. - Family history:: not pertinent. ROS: 15:36 Constitutional: Negative for fever, chills, and weight loss, Cardiovascular: Negative rt for chest pain, palpitations, and edema, Respiratory: Negative for shortness of breath, cough, wheezing, and pleuritic chest pain, MS/Extremity: Negative for injury and deformity, Skin: Negative for injury, rash, and discoloration, Neuro: Negative for headache, weakness, numbness, tingling, and seizure, 15:36 Abdomen/GI: Positive for Contractions, negative for vomiting, Exam: 15:36 Constitutional: This is a well developed, well nourished patient who is awake, alert, rt and in no acute distress. Head/Face: Normocephalic, atraumatic. Chest/axilla: Normal chest wall appearance and motion. Nontender with no deformity. No lesions are appreciated. Cardiovascular: Regular rate and rhythm with a normal S1 and S2. No gallops, murmurs, or rubs. Normal PMI, no JVD. No pulse deficits. Respiratory: Lungs have equal breath sounds bilaterally, clear to auscultation and percussion. No rales, rhonchi or wheezes noted. No increased work of breathing, no retractions or nasal flaring. Skin: Warm, dry with normal turgor. Normal color with no rashes, no lesions, and no evidence of cellulitis. MS/ Extremity: Pulses equal, no cyanosis. Neurovascular intact. Full, normal range of motion. Neuro: Awake and alert, GCS 15, oriented to person, place, time, and situation. Cranial nerves II-XII grossly intact. Motor strength 5/5 in all extremities. Sensory grossly intact. Cerebellar exam normal. Normal gait. 15:36 Abdomen/GI: Gravid uterus, no focal tenderness, 15:36 : Cervix closed, rt Vital Signs: 12:06 BP 120 / 74; Pulse 73; Resp 17 S; Temp 97.9(TE); Pulse Ox 100% on R/A; Weight 52.16 kg as6 (R); Height 5 ft. 3 in. (R); Pain 7/10; 13:00 BP 128 / 83; Pulse 71; Resp 16 S; Pulse Ox 99% on R/A; as6 14:00 BP 119 / 79; Pulse 63; Resp 16 S; Pulse Ox 100% on R/A; as6 12:06 Body Mass Index 20.37 (52.16 kg, 160.02 cm) as6 12:06 Pain Scale: Adult as6 MDM: 12:00 Patient medically screened. rt 15:38 Differential Diagnosis [place] contractions, labor. Data reviewed: vital signs, rt nurses notes. Management of patient was discussed with the following: Nurse Gynecology: Discussed with patient's GERMAN PROFESSOR who accepts patient in transfer. Counseling: I had a detailed discussion with the patient and/or guardian regarding the historical points, exam findings, and any diagnostic results supporting the discharge/admit diagnosis, the need to transfer to another facility. ED course: Believe that patient requires urgent obstetrical evaluation. Do not believe that delivery is imminent, believe that she is stable for transfer and will be better served in an obstetricians care. Administered Medications: No medications were administered Disposition Summary: 10/30/23 12:15 Transfer Ordered Notes: [facility] Reason: Higher level of care rt Condition: Undetermined rt Problem: new rt Symptoms: are unchanged rt Accepting Physician: (10/30/23 14:07) as6 Diagnosis - 35 weeks with contractions rt Forms: - Medication Reconciliation Form rt - SBAR form rt Signatures: Shana Holman, RN [facility]A iw Hector Collins RN RN as6 Chase Christianson MD MD rt Corrections: (The following items were deleted from the chart) 12: 12:02 Allergies: NKDA; 14: 12:15 rt as6
[2023-10-30 14:41] VITALS: BP 119/79; TEMP 97.9; O2SAT 100
== END 2023-10-30 14:07 | disposition short-term general hospital (02) ==
LOC: ER 11:56
DX: O47.03 False labor before 37 completed weeks of gestation, third trimester (principal); Z3A.35 35 weeks gestation of pregnancy
CPT/HCPCS: 99285